=== PATIENT | male | born 1995 | race Two or more races ===

== ENCOUNTER 2017-07-05 22:30 | Emergency (ER) | payer OTHER ==
[~2017-07-05] VITALS: Ht 172.7 cm; Wt 85.0 kg
--- NOTE | 2017-07-05 23:15 | Emergency Room Report ---
History of Present Illness Time Seen by [id number] Presenting Problem in Triage Pt arrived:Walked Presenting Problem:ABDOMINAL PAIN, N/V, NO DIARRHEA, SXS STARTED YESTERDAY Onset of symptoms date/time:07/04/17 or onset unknown for: Treatment Prior to Arrival: PREVENTION RN Provided by: Sepsis Risk Assessment: Temp: 98.1 B/P: 125/74 MAP: 91 Pulse: 54 Resp: 20 Recent fever? N Clinical Suspician of Infection? N Mental Status: 1 - Regular (Normal Baseline) Sepsis Risk:Low Sepsis Risk Have you (or family members/close friends) recently traveled outside the [place]? N If Yes, where/when: Have you had exposure to infectious disease within the past month? N TB? Other? Specify: Source patient, RN notes reviewed, family, old records Exam Limitations language barrier Comment pt with exposure to tob and has n/v today Cardiac Chest Pain Chest pain indicative of cardiac No Timing/Duration this evening Severity moderate ALLERGIES Coded Allergies: No Known Allergies (07/05/17) Home Medications Reported Medications No Known Home Medications History Medical History General CAD? No Angina: No LA: No Hypertension? No Hyperlipidemia? No CHF? No DVT? No PE? No COPD? No Asthma? No Anemia? No GERD? No Gastric ulcers? No GI Bleed? No Hernia? No Thyroid Problems? No Hypothyroidism? No CVA? No Seizures? No Diabetes? No Renal Insuffiency? No End Stage Renal Disease? No UTI? No Stones? No BPH? No GB Disease: No Nephritic Syndrome? No Asplenia? No Hepatitis? No Sickle Cell Disease? No Arthritis? No Migraines? No Cataracts? No Glaucoma? No MRSA? No HIV? No TB? No Anxiety? No Depression? No Immunization Hx DT/Tetanus Unknown Surgical Hx Previous Surgery?N Social History Smoking Hx Smoker: Light Tobacco Smoker Tobacco: Yes Type Cigarettes Drugs none Review of Systems All Other Systems Reviewed and Negative Constitutional denies fever Eyes denies drainage ENT denies: ear pain, epistaxis, throat pain. Respiratory denies cough, denies shortness of breath, denies wheezing Cardiovascular denies chest pain, denies palpitations, denies syncope Gastrointestinal see HPI, nausea, vomiting Genitourinary denies: dysuria, frequency, hesitancy, hematuria. Musculoskeletal denies back pain, denies joint pain, denies joint swelling, denies neck pain Skin denies rash Psychiatric/Neurological denies headache, denies seizure Physical Exam Vital Signs Vital Signs Date Time Temp Pulse Resp B/P Pulse O2 O2 Flow FiO2 Ox Delivery Rate 07/058 98.1 54 20 125/74 99 - WBC >12,000 or <4,000 or 10% bands? 2 or more SIRS Criteria Met? B/P:125/74 MAP:91 Creatinine >2.0? UA output<0.5ml/kg/hr for 2 hrs? Platelet count >100,000? Lactate >2.0mmol/1? INR >1.2 or PTT > than 60 sec? Evidence of Organ Dysfunction? Provider documented clinical suspician of infection? N Sepsis Criteria Count: 1 Sepsis Risk: Low Sepsis Risk General Appearance no apparent distress Eye Exam - bilateral eye PERRL, bilateral eye EOMI Ear, Nose, Throat normal ENT inspection Neck supple Respiratory Status No: respiratory distress. Lung Sounds bilateral: lungs clear. 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 No Results/Orders Laboratory Tests 07/05/17 2300: Sodium 136, Potassium 4.2, Chloride 102, Carbon Dioxide 27, BUN 15, Creatinine 1.0, Estimated Creat Clear 138, Estimated GFR (MDRD) 93, Glucose 113 H, Calcium 9.1, Total Bilirubin 0.4, AST 18, ALT 20, Alkaline Phosphatase 72, Total Protein 7.8, Albumin 4.4, Globulin 3.4 H, Albumin/Globulin Ratio 1.3, Amylase 25, Lipase 105, WBC 11.0 H, RBC 4.68, Hgb 13.9 L, Hct 41.3 L, MCV 88.3, RDW 13.8, Plt Count 179, MPV 7.4, Gran % 82.8 H, Gran # 9.1 H, Lymphocytes % 13.2, Monocytes % 3.5, Eosinophils % 0.3, Basophils % 0.2, Lymphocytes # 1.4, Monocytes # 0.4, Eosinophils # 0.0, Basophils # 0.0, PUBS MCHC 33.7, MCH 29.8 07/05/17 0600: Urine Color YELLOW, Urine Appearance CLEAR, Urine pH 7.0, Ur Specific [place] 1.020, Urine Protein TRACE H, Urine Ketones 1+ H, Urine Blood NEGATIVE, Urine Nitrate NEGATIVE, Urine Bilirubin NEGATIVE, Urine Urobilinogen 1.0, Ur Leukocyte Esterase NEGATIVE, Urine Glucose NEGATIVE Current Medication Orders Sig/[facility] Start time Last Medication Dose Route Stop Time Status Admin Sodium Chloride 1,000 ML .STK-MED ONE 07/05 2327 DC IV Metoclopramide HCl 0 .STK-MED ONE 07/05 231 DC .ROUTE Famotidine 0 .STK-MED ONE 07/05 2256 DC IV Sodium Chloride 50 ML .STK-MED ONE 07/05 225 DC IV Sodium Chloride 1,000 ML .STK-MED ONE 07/05 225 DC IV Ondansetron HCl 0 .STK-MED ONE 07/05 2253 DC .ROUTE Famotidine 20 MG ONCE ONE 07/05 2245 DC 07/05 IV 07/05 2246 2315 Metoclopramide HCl 10 MG ONCE ONE 07/055 DC 07/05 IVP 07/056 2318 Ondansetron HCl 4 MG ONCE ONE 07/05 2245 DC 07/05 IV 07/05 2246 2316 Sodium Chloride 10 ML PRN PRN 07/05 2245 AC IV 07/06 2240 Sodium Chloride 1,000 ML .Q1H1M 07/05 2245 AC 07/05 IV 07/05 2345 2317 Sodium Chloride 10 ML PRN PRN 07/05 2245 AC IV 07/06 2240 Sodium Chloride 8 ML ONCE ONE 07/05 224 DC IV 07/05 224 Orders Procedure Date/time Status IV SALINE LOCK 07/05 2241 Active URINALYSIS/COMPLETE 07/05 2241 Complete LIPASE 07/05 2241 Complete COMPLETE METABOLIC PANEL 07/05 2241 Complete CBC WITH AUTO DIFF 07/05 2241 Complete AMYLASE 07/05 2241 Complete Departure Departure Time of Disposition 8 Disposition DC Home or Self Care(routine) Clinical Impression Primary Impression: Tobacco poisoning Qualifiers: Encounter type: initial encounter Injury intent: accidental or unintentional Qualified Code: T65.291A - Toxic effect of other tobacco and nicotine, accidental (unintentional), initial encounter Condition STABLE Patient Instructions DI for Vomiting -- Adult Additional Instructions fluids and recheck if needed Discharge Counseling Counseled pt/family regarding diagnosis, test results, follow up needs Prescriptions Current Visit Scripts No Known Home Medications ED Critical Care Critical Care No at [id number]
[2017-07-05 23:17] LABS: HEMOGLOBIN 13.9 g/dL (14.1-18.0); LYMPH # 1.4 K/mm3 (0.7-4.5); LYMPH % 13.2 % (10-50)
[2017-07-05 23:36] LABS: URINE BILIRUBIN - DIPSTICK NEGATIVE (NEG); URINE BLOOD NEGATIVE (NEG)
[2017-07-06 00:28] VITALS: BP 134/71
== END 2017-07-06 00:40 | disposition home or self-care (01) ==
LOC: ER 22:30
PROVIDERS: Emergency Medicine
DX: T65.291A Toxic effect of other tobacco and nicotine, accidental (unintentional), initial encounter (principal); R11.2 Nausea with vomiting, unspecified; Y92.73 Farm field as the place of occurrence of the external cause